=== PATIENT | male | born 1995 | race Caucasian/White ===

== ENCOUNTER 2017-03-28 21:05 | Emergency (ER) | payer SELFPAY ==
[~2017-03-28] VITALS: Ht 185.4 cm; Wt 81.2 kg
[2017-03-28 21:14] VITALS: BP 119/65
[2017-03-28] MEDS ORDERED: LIDOCAINE 1%, 20ML ONE (21:54)
[2017-03-28] MEDS ORDERED: LIDOCAINE 1%-EPI 1:100K, 20ML INFIL ONE (22:00)
[2017-03-28] MEDS ORDERED: HYDROcodone/APAP 5/325 TABLET ONE (22:04)
[2017-03-28] MEDS ORDERED: ONDANSETRON ODT 4 MG ONE (22:04)
[2017-03-28] MEDS ORDERED: ONDANSETRON ODT 4 MG PO ONE (22:30)
[2017-03-28] MEDS ORDERED: HYDROcodone/APAP 5/325 TABLET PO ONE (22:30)
[2017-03-28] MEDS ORDERED: BACITRACIN ZINC OINT 500U/GM, 0.9 GM ONE (23:16)
== END 2017-03-29 00:15 | disposition home or self-care (01) ==
LOC: ED 23:59
DX: S02.2XXA Fracture of nasal bones, initial encounter for closed fracture (principal); S01.21XA Laceration without foreign body of nose, initial encounter; V27.4XXA Motorcycle driver injured in collision with fixed or stationary object in traffic accident, initial encounter; Y93.55 Activity, bike riding; Y92.488 Other paved roadways as the place of occurrence of the external cause; Y99.8 Other external cause status
CPT/HCPCS: 12051; 70486; 99284; Q0162

== ENCOUNTER 2018-05-17 21:31 | Emergency (ER) | payer MEDICAID ==
[~2018-05-17] VITALS: Ht 185.4 cm; Wt 91.0 kg
[2018-05-17 21:34] VITALS: BP 135/78
[2018-05-17] MEDS ORDERED: LIDOCAINE-MPF 1%, 5ML ONE ×2 (22:27→22:49)
[2018-05-17] MEDS ORDERED: LIDOCAINE 1%, 10ML INFIL ONE (22:30)
[2018-05-17] MEDS ORDERED: BACITRACIN ZINC OINT 500U/GM, 0.9 GM ONE (22:39)
== END 2018-05-17 23:10 | disposition home or self-care (01) ==
LOC: ED 23:04
DX: S61.412A Laceration without foreign body of left hand, initial encounter (principal); X58.XXXA Exposure to other specified factors, initial encounter; Y93.89 Activity, other specified; Y99.8 Other external cause status; Y92.410 Unspecified street and highway as the place of occurrence of the external cause
CPT/HCPCS: 12041; 99284

== ENCOUNTER 2021-02-27 20:24 | Emergency (ER) | payer MEDICAID ==
[~2021-02-27] VITALS: Ht 185.4 cm; Wt 90.0 kg
--- NOTE | 2021-02-27 21:30 | NUR ---
PATIENT PLACED ON 2L NC FOR SP02 88%.
[2021-02-27] MEDS ORDERED: NALOXONE 0.4 MG/ML, 1ML ONE (22:48)
[2021-02-27] MEDS ORDERED: NALOXONE 0.4 MG/ML, 1ML IVPush PRN (23:00)
[2021-02-27] MEDS ORDERED: SODIUM CHLORIDE 0.9% 1,000 ML IV ONE (23:00)
--- NOTE | 2021-02-28 00:43 | NUR ---
PATIENT RESTING IN ROOM WITH EYES CLOSED. NAD. VSS. WILL CONTINUE TO MONITOR.
--- NOTE | 2021-02-28 01:47 | NUR ---
MD AT BEDSIDE DISCUSSING POC WITH FAMILY
--- NOTE | 2021-02-28 01:51 | NUR ---
PT TAKEN OFF OXYGEN AND O2 SAT DROPPED TO 89%. O2 PLACED BACK ON PT. MD SPOKE WITH FAMILY AND THEY AGREE TO LET PT STAY IN ER OVER NIGHT AND PICK HIM UP IN THE MORNING.
[2021-02-28 06:38] VITALS: BP 119/80
--- NOTE | 2021-02-28 07:02 | NUR ---
[facility] RPT REC'D AND ASSUMED PT CARE. DR CASTILLO AT BEDSIDE, PT OOB AND AMBULATES WITH STEADY GAIT. DR CASTILLO D/C PLAN DISCUSSED AND QUESTIONS ANSWERED.
--- NOTE | 2021-02-28 07:02 | NUR ---
CARE TRANSFERED. REPORT GIVEN TO MAGY GONZALEZ
--- NOTE | 2021-02-28 07:11 | NUR ---
Patient/Caregiver given discharge instructions and they have confirmed that they understand the instructions. Patient ambulatory with steady gait. NAD, all questions answered appropriately, denies additional needs at this time. No personal belongings left in room after discharge.
== END 2021-02-28 07:26 | disposition home or self-care (01) ==
LOC: ED 21:27 → INTOOBSV 02-28 00:04 → EDIP 02-28 00:04 → OBSVTOIN 02-28 00:04 → UNDOADMOB 02-28 00:04
DX: T40.411A Poisoning by fentanyl or fentanyl analogs, accidental (unintentional), initial encounter (principal); Y92.9 Unspecified place or not applicable
CPT/HCPCS: 96361; 96374; 99285; J2310; J7030